=== PATIENT | male | born 1985 | race Caucasian/White ===

== ENCOUNTER → 2019-09-29 | Outpatient (CLI) | payer BC ==
--- NOTE | 2019-09-29 16:31 | KCIC ---
EXAM: Right foot 3 views. HISTORY: Right foot pain. COMPARISON: None. FINDINGS: Three views of the right foot are obtained. No fractures are identified. Alignment is normal. Joint spaces are maintained. There is a small posterior calcaneal spur. IMPRESSION: 1. No fracture. Electronically signed by: Hanane López MD (09/29/2019 4:28 PM) [id number]
--- NOTE | 2019-09-29 16:32 | KCIC ---
EXAM: RIGHT SHOULDER 3 VIEWS. HISTORY: Right shoulder pain. COMPARISON: None. FINDINGS: No fractures are identified. Glenohumeral joint spaces and alignment are maintained. Acromioclavicular joint spaces and alignment are maintained. IMPRESSION: 1. No fracture or malalignment. Electronically signed by: Hanane López MD (09/29/2019 4:29 PM) [id number]
== END | disposition home or self-care (01) ==
LOC: KCIC 15:31
PROVIDERS: ATTEND Internal Medicine
DX: S99.921A Unspecified injury of right foot, initial encounter (principal); M25.511 Pain in right shoulder; X58.XXXA Exposure to other specified factors, initial encounter; Y93.89 Activity, other specified; Y92.89 Other specified places as the place of occurrence of the external cause; Y99.8 Other external cause status
CPT/HCPCS: 73030; 73630

== ENCOUNTER → 2019-12-22 | Outpatient (CLI) | payer BC ==
--- NOTE | 2019-12-22 11:01 | KCIC ---
EXAMINATION: MRI RIGHT SHOULDER WITHOUT IV CONTRAST CLINICAL HISTORY: Chronic right shoulder pain after years of repetitive lifting and carrying. Osteoarthritis. TECHNIQUE: Multiplanar multisequential images obtained through the shoulder without intravenous contrast. COMPARISON: Right shoulder radiographs 09/29/2019 FINDINGS: TENDONS: - Supraspinatus: Low-grade interstitial tearing at the footplate with associated tendinosis. - Infraspinatus: Mild tendinosis without tear. - Subscapularis: Mild tendinosis without tear. - Teres Minor: Within normal limits. - Biceps Tendon: The long head biceps tendon is intact and appropriately located. MUSCLES: Muscle bulk and signal intensity are within normal limits. LABRUM: Posterior and inferior labral degeneration without discrete tear. GLENOHUMERAL JOINT: - Joint Fluid: No joint effusion or synovitis. - Cartilage: No full-thickness chondral defect visualized. ACROMIOCLAVICULAR JOINT: Minimal degenerative changes. BONES/MARROW: No evidence of acute fracture or suspicious marrow replacing process. Reactive changes in the anterior greater tuberosity. OTHER: Mild thickening and fluid in the subacromial/subdeltoid bursa which can be seen with bursitis. IMPRESSION: Low-grade interstitial tearing in the supraspinatus tendon and mild rotator cuff tendinosis. No full-thickness rotator cuff tear. Electronically signed by: Fred Malik DO (12/22/2019 10:57 AM) [id number]
== END ==
LOC: KCIC MRI 09:23
PROVIDERS: ATTEND Internal Medicine
DX: S49.91XD Unspecified injury of right shoulder and upper arm, subsequent encounter (principal); M19.011 Primary osteoarthritis, right shoulder; M75.101 Unspecified rotator cuff tear or rupture of right shoulder, not specified as traumatic; M75.91 Shoulder lesion, unspecified, right shoulder; X58.XXXD Exposure to other specified factors, subsequent encounter
CPT/HCPCS: 73221